=== PATIENT | male | born 1960 | race African-American/Black ===

== ENCOUNTER 2017-12-03 10:09 | Emergency (ER) | payer OTHER ==
[~2017-12-03] VITALS: Ht 177.8 cm; Wt 85.0 kg
[2017-12-03] MEDS ORDERED: ASPIRIN 81MG TABLET PO ONE (10:30)
[2017-12-03] MEDS ORDERED: FAMOTIDINE 20MG/2ML VIAL IV ONE (10:30)
[2017-12-03] MEDS ORDERED: NITROGLYCERIN 0.4MG TABLET SL SL PRN (10:30)
[2017-12-03] MEDS ORDERED: DIPHENHYDRAMINE 50MG/ML VIAL IV ONE (10:30)
[2017-12-03 12:10] LABS: HEMATOCRIT. 27.3 % (42.0-52.0); HEMOGLOBIN. 8.5 g/dL (14.0-18.0); MEAN CORPUSCULAR HEMOGLOBIN 24.3 pg (28.0-32.0); MEAN CORPUSCULAR VOLUME 77.8 fL (80.0-94.0); MEAN PLATELET VOLUME 8.9 fl (7.4-10.4); PLATELET 64 x1000/uL (130-400); RED BLOOD CELL COUNT 3.51 mill/uL (4.7-6.1); RED CELL DISTRIBUTION WIDTH 25.5 % (11.6-14.6)
[2017-12-03 12:17] LABS: CHLORIDE 108 mEq/L (98-107)
[2017-12-03 12:22] LABS: INR 1.4; PARTIAL THROMBOPLASTIN TIME 31.9 sec (23.4-31.0)
[2017-12-03 12:26] LABS: ETHANOL BLOOD 274 mg/dL
[2017-12-03 13:03] LABS: NUCLEATED RED BLOOD CELLS 2 /100 WBC
[2017-12-03 13:04] LABS: PLATELET ESTIMATE DECREASED
[2017-12-03] MEDS ORDERED: IBUPROFEN 400MG TABLET PO ONE (13:15)
[2017-12-03 16:55] LABS: *AMPHETAMINES SCREEN URINE NEGATIVE (NEGATIVE); *BARBITURATES SCREEN URINE NEGATIVE (NEGATIVE); *BENZODIAZEPINES SCREEN URINE NEGATIVE (NEGATIVE); *COCAINE SCREEN URINE NEGATIVE (NEGATIVE)
[2017-12-03 16:56] LABS: CANNABINOID URINE SCREEN NEGATIVE (NEGATIVE); METHADONE URINE SCREEN NEGATIVE (NEGATIVE); OPIATES URINE SCREEN NEGATIVE (NEGATIVE); PHENCYCLIDINE URINE SCREEN NEGATIVE (NEGATIVE)
[2017-12-03 17:00] VITALS: BP 121/61
== END 2017-12-03 18:00 | disposition home or self-care (01) ==
LOC: ER 10:58
DX: R07.89 Other chest pain (principal); F10.129 Alcohol abuse with intoxication, unspecified; Y90.8 Blood alcohol level of 240 mg/100 ml or more; K70.9 Alcoholic liver disease, unspecified; R03.0 Elevated blood-pressure reading, without diagnosis of hypertension; F17.210 Nicotine dependence, cigarettes, uncomplicated; Z71.6 Tobacco abuse counseling
CPT/HCPCS: 36415; 71045; 74176; 80053; 80305; 83690; 83880; 84484; 85025; 85610; 85730; 93005; 96374; 96375; 99285; 99406; G0482; J1200; J3490

== ENCOUNTER 2018-03-01 11:43 | Inpatient (IN) | payer OTHER ==
[~2018-03-01] VITALS: Ht 177.8 cm; Wt 73.7 kg
[2018-03-01] MEDS ORDERED: MORPHINE SULFATE 4 MG/ML CPJ (NOT FOR IM USE) IV STA (12:39)
[2018-03-01] MEDS ORDERED: SODIUM CHLORIDE 0.9% 1,000 ML IV ONE (12:39)
[2018-03-01] MEDS ORDERED: ONDANSETRON HCL 4MG/2ML INJ IV STA (12:39)
[2018-03-01] MEDS ORDERED: KETOROLAC 30MG/ML VIAL IV ONE (14:15)
[2018-03-01 14:16] LABS: CHLORIDE 102 mEq/L (98-107); INR 1.3; PROTHROMBIN TIME 12.8 sec (9.1-11.1)
[2018-03-01 14:17] LABS: HEMATOCRIT. 26.5 % (42.0-52.0); MEAN CORPUSCULAR VOLUME 72.8 fL (80.0-94.0); MEAN PLATELET VOLUME 8.6 fl (7.4-10.4); PLATELET 74 x1000/uL (130-400); RED BLOOD CELL COUNT 3.63 mill/uL (4.7-6.1); RED CELL DISTRIBUTION WIDTH 20.7 % (11.6-14.6)
[2018-03-01 14:20] LABS: ETHANOL BLOOD 98 mg/dL
[2018-03-01 14:48] LABS: PLATELET ESTIMATE DECREASED
[2018-03-01 15:04] LABS: CLARITY URINE CLEAR (CLEAR); COLOR URINE ORANGE (YELLOW); KETONES URINE NEGATIVE (NEGATIVE); LEUKOCYTE ESTERASE URINE 1+ (NEGATIVE); NITRITE URINE NEGATIVE (NEGATIVE); OCCULT BLOOD URINE 1+ (NEGATIVE); PH URINE 6.5 (4.5-8.0); PROTEIN URINE NEGATIVE (NEGATIVE); SPECIFIC GRAVITY URINE 1.017 (1.005-1.030)
[2018-03-01 15:37] LABS: *AMPHETAMINES SCREEN URINE NEGATIVE (NEGATIVE); *BARBITURATES SCREEN URINE NEGATIVE (NEGATIVE); *BENZODIAZEPINES SCREEN URINE NEGATIVE (NEGATIVE)
[2018-03-01 15:38] LABS: *COCAINE SCREEN URINE NEGATIVE (NEGATIVE); METHADONE URINE SCREEN NEGATIVE (NEGATIVE); OPIATES URINE SCREEN PRESUMTIVE POSITIVE (NEGATIVE); PHENCYCLIDINE URINE SCREEN NEGATIVE (NEGATIVE)
[2018-03-01 15:40] LABS: CANNABINOID URINE SCREEN NEGATIVE (NEGATIVE)
[2018-03-01] MEDS: ACETAMINOPHEN 325MG TABLET PO PRN (18:18)
[2018-03-01] MEDS ORDERED: GUAIFENESIN 200MG/10ML SUGAR FREE UDC PO PRN (18:30)
[2018-03-01] MEDS ORDERED: ONDANSETRON HCL 4MG/2ML INJ IV PRN (18:30)
[2018-03-01] MEDS ORDERED: MVI, ADULT NO.1 10 ML, FOLIC ACID 1 MG, THIAMINE HCL 100 MG in SODIUM CHLORIDE 0.9% 1,0... IV SCH ×4 (18:30)
[2018-03-01] MEDS ORDERED: MAGNESIUM/ALUMINUM HYDROXIDE/SIMETHICONE 30ML UDC PO PRN (18:30)
[2018-03-01] MEDS ORDERED: LORAZEPAM 0.5MG TABLET PO PRN (18:30)
[2018-03-01] MEDS ORDERED: CLONIDINE 0.1MG TABLET PO PRN (18:30)
[2018-03-01] MEDS ORDERED: IPRATROPIUM/ALBUTEROL 0.5-3(2.5)MG/3ML NEB INH PRN (18:30)
[2018-03-01] MEDS ORDERED: NA PHOS,M-B/NA PHOS,DI-BA ENEMA 118ML PR PRN (18:30)
[2018-03-01] MEDS ORDERED: DOCUSATE SODIUM 100MG CAPSULE PO PRN (18:30)
[2018-03-01] MEDS ORDERED: LEVOFLOXACIN 500MG PREMIX 100 ML IV NR (21:00)
[2018-03-01] MEDS: KETOROLAC 15MG/ML VIAL IV PRN (21:09)
[2018-03-01] MEDS ORDERED: CEFTRIAXONE 1 G PREMIX 50 ML IV NR (22:00)
[2018-03-01 23:08] LABS: CREATINE KINASE 142 IU/L (39-308); CREATINE KINASE MB FRACTION 1.6 ng/mL (0.5-3.6)
[2018-03-02] VITALS (7 sets, daily range): BP systolic 131–159; BP diastolic 68–87
[2018-03-02] MEDS ORDERED: ZOLPIDEM TARTRATE 5MG TABLET PO PRN (02:33)
[2018-03-02] MEDS: NITROGLYCERIN 0.4MG TABLET SL SL PRN ×2 (03:05→03:37)
[2018-03-02] MEDS: KETOROLAC 15MG/ML VIAL IV PRN ×2 (04:23→22:53)
[2018-03-02] MEDS: SUCRALFATE 1 G/10 ML UDC PO SCH ×4 (06:32→22:28)
[2018-03-02] MEDS: METOPROLOL TARTRATE 25MG TABLET PO SCH ×2 (10:26→22:28)
[2018-03-02] MEDS: PANTOPRAZOLE SODIUM 40 MG/VIAL IV SCH (10:26)
[2018-03-02 10:34] LABS: CREATINE KINASE 131 IU/L (39-308)
[2018-03-02 10:35] LABS: CREATINE KINASE MB FRACTION 1.2 ng/mL (0.5-3.6)
[2018-03-02] MEDS: ACETAMINOPHEN 325MG TABLET PO PRN (17:28)
[2018-03-02] MEDS ORDERED: CEFTRIAXONE 1 G PREMIX 50 ML IV SCH ×2 (21:00→23:00)
[2018-03-02] MEDS ORDERED: LEVOFLOXACIN 500MG PREMIX 100 ML IV SCH (22:00)
[2018-03-03] VITALS: BP 116/62
[2018-03-03] MEDS ORDERED: LEVOFLOXACIN 500MG PREMIX 100 ML IV SCH
[2018-03-03 03:57] VITALS: BP 128/81
[2018-03-03] MEDS: ACETAMINOPHEN 325MG TABLET PO PRN ×2 (05:21→09:02)
[2018-03-03] MEDS: SUCRALFATE 1 G/10 ML UDC PO SCH (05:21)
[2018-03-03 08:00] VITALS: BP 127/66
[2018-03-03] MEDS: PANTOPRAZOLE SODIUM 40 MG/VIAL IV SCH (09:02)
[2018-03-03] MEDS: METOPROLOL TARTRATE 25MG TABLET PO SCH (09:02)
[2018-03-03 10:42] VITALS: BP 127/66
== END 2018-03-03 12:20 | disposition home or self-care (01) | DRG 203 ==
LOC: ER 11:43 → 8WST 14:15 → EDBEDREQ 14:20 → ENRESERV 03-02 01:50 → 8WST 03-02 02:35
PROVIDERS: ADMIT Internal Medicine; ATTEND Internal Medicine
DX: R07.89 Other chest pain (principal); E43 Unspecified severe protein-calorie malnutrition; D69.6 Thrombocytopenia, unspecified; E83.51 Hypocalcemia; E87.1 Hypo-osmolality and hyponatremia; K70.30 Alcoholic cirrhosis of liver without ascites; N39.0 Urinary tract infection, site not specified; H54.8 Legal blindness, as defined in USA; D63.8 Anemia in other chronic diseases classified elsewhere; F17.210 Nicotine dependence, cigarettes, uncomplicated; I10 Essential (primary) hypertension; F10.129 Alcohol abuse with intoxication, unspecified; Z68.23 Body mass index [BMI] 23.0-23.9, adult; Z79.899 Other long term (current) drug therapy
CPT/HCPCS: 36415; 71045; 74176; 80061; 80305; 82550; 82553; 82607; 82746; 83036; 83540; 83550; 83605; 83880; 84484; 93005; 93970; 96361; 96365; 96367; 96375; 99285; C9113; G0482; J0696; J1885; J1956; J2270; J2405; J3411; J3490; J7030; J7050

== ENCOUNTER 2018-04-03 12:43 | Emergency (ER) | payer OTHER ==
[~2018-04-03] VITALS: Ht 167.6 cm; Wt 65.0 kg
[2018-04-03] MEDS ORDERED: HYDROCODONE/ACETAMINOPHEN 5/325MG TABLET PO STA (19:08)
[2018-04-03] MEDS ORDERED: DIPHENHYDRAMINE 50MG/ML VIAL IV ONE (19:15)
[2018-04-03 19:43] LABS: HEMATOCRIT. 26.6 % (42.0-52.0); MEAN CORPUSCULAR HEMOGLOBIN 23.2 pg (28.0-32.0); MEAN CORPUSCULAR VOLUME 76.7 fL (80.0-94.0); MEAN PLATELET VOLUME 9.1 fl (7.4-10.4); PLATELET 66 x1000/uL (130-400); RED BLOOD CELL COUNT 3.47 mill/uL (4.7-6.1); RED CELL DISTRIBUTION WIDTH 24.4 % (11.6-14.6)
[2018-04-03 19:44] LABS: CHLORIDE 106 mEq/L (98-107)
[2018-04-03 20:50] LABS: PLATELET ESTIMATE DECREASED
[2018-04-03] MEDS ORDERED: ACETAMINOPHEN 325MG TABLET PO ONE (22:00)
[2018-04-03] MEDS ORDERED: KETOROLAC 60MG/2ML VIAL IM ONE (22:00)
[2018-04-03 22:18] VITALS: BP 142/66
[2018-04-03 23:00] LABS: *AMPHETAMINES SCREEN URINE NEGATIVE (NEGATIVE); *BARBITURATES SCREEN URINE NEGATIVE (NEGATIVE); *BENZODIAZEPINES SCREEN URINE NEGATIVE (NEGATIVE); *COCAINE SCREEN URINE PRESUMTIVE POSITIVE (NEGATIVE)
[2018-04-03 23:01] LABS: CANNABINOID URINE SCREEN NEGATIVE (NEGATIVE); METHADONE URINE SCREEN NEGATIVE (NEGATIVE); OPIATES URINE SCREEN PRESUMTIVE POSITIVE (NEGATIVE); PHENCYCLIDINE URINE SCREEN NEGATIVE (NEGATIVE)
== END 2018-04-03 22:59 | disposition home or self-care (01) ==
LOC: ER 12:43
DX: M75.92 Shoulder lesion, unspecified, left shoulder (principal); I10 Essential (primary) hypertension; F17.200 Nicotine dependence, unspecified, uncomplicated; Z98.890 Other specified postprocedural states
CPT/HCPCS: 36415; 73030; 80053; 80305; 85025; 85651; 93005; 96372; 96374; 99284; 99406; J1200; J1885